=== PATIENT | male | born 1965 | race Caucasian/White ===

== ENCOUNTER 2016-07-09 09:29 | Day surgery (SDC) | payer BC ==
[~2016-07-09 09:29] MED LIST: ALDACTONE25 M1 PO; ASPIRIN EC81 MG PO; ATORVASTATIN CA20 MG PO; BACLOFEN10 M1 PO; BACTRIM DS TAB1 EAC2 PO; COUMADIN2.5 M1 PO; COUMADIN5 M2 PO; COUMADIN7.5 M1 PO; EFFEXOR XR150 M1 PO; ENTRESTO 24 MG1 EACH PO; FISH OIL 1,0001 CAP PO; HYDROCODON-ACE1 EA16 PO; JANUMET XR 50-1 EAC1 PO; KLONOPIN1 M1 PO; LASIX20 M1 PO; LISINOPRIL5 MG PO; NORCO 10/325 TA1 TAB PO; POTASSIUM CHLO20 ME3 PO; PRAVACHOL80 M1 PO; XIGDUO XR 5 MG1 EAC1 PO; ZEBETA5 M2 PO; ZYLOPRIM100 M1 PO
[2016-07-09 10:51] LABS: BASO % 0.1 % (0-2); EOSINOPHIL ABSOLUTE COUNT 0.3 tho/cmm (0.0-0.7); HCT-HEMATOCRIT 43.5 % (36.0-53.5); HGB-HEMOGLOBIN 13.9 gm/dl (13.5-17.0); LYMPH ABSOLUTE COUNT 1.8 tho/cmm (0.8-4.5); MCH (MEAN CORPUSCULAR HGB) 28.7 pg (28.0-32.0); MCV (MEAN CELL VOLUME) 89.9 fl (82.0-96.0); MONO % 10.3 % (0-12); MONOCYTE ABSOLUTE COUNT 0.9 tho/cmm (0.0-1.2); NEUTROPHIL ABSOLUTE COUNT 5.3 tho/cmm (1.6-8.0); NEUTROPHIL-AUTOMATED 5.3 tho/cmm (1.6-8.0); NEUTROPHILS % 63.6 % (40-80); PLATELET COUNT 261 tho/cmm (150-450); RED BLOOD COUNT 4.84 mil/cmm (4.40-5.70); RED CELL DISTRIBUTION WIDTH 14.9 % (12.4-16.4); WHITE BLOOD COUNT 8.3 tho/cmm (4.0-10.0)
[2016-07-09 10:55] LABS: INR 1.3 INR (0.9-1.1); PROTHROMBIN TIME 15.4 SECONDS (9.0-13.6)
[2016-07-09 11:02] LABS: ANION GAP 12 mmol/L (0-20); BLOOD UREA NITROGEN 21 mg/dl (6-24); CALCIUM 8.9 mg/dl (8.5-10.5); CARBON DIOXIDE-VENOUS 29 mmol/L (22-32); CHLORIDE 106 mmol/l (96-110); CREATININE 1.09 mg/dl (0.60-1.30); GLUCOSE 124 mg/dL (70-110); POTASSIUM 4.6 mmol/L (3.7-5.1); SODIUM 142 mmol/L (135-145); eGFR VALUE FOR BLACK >90 mL/Min
[2016-11-12] MEDS ORDERED: LASIX40 M1 PO (10:52)
[2016-11-12] MEDS ORDERED: KLOR-CON M2020 ME1 PO (10:52)
[2016-11-12] MEDS ORDERED: COUMADIN5 M2 PO (10:53)
[2016-11-12] MEDS ORDERED: COUMADIN7.5 M1 PO (10:54)
[2016-11-12] MEDS ORDERED: XIGDUO XR 5 MG1 EAC1 PO (10:54)
== END 2016-07-10 11:15 ==
LOC: SHSB 09:29 → BURN 13:30
PROVIDERS: Anesthesiology
PROC: 0HRMX74 Replacement of Right Foot Skin with Autologous Tissue Substitute, Partial Thickness, External Approach (ICD-10-PCS; principal; 2016-07-09)
DX: E11.621 Type 2 diabetes mellitus with foot ulcer (principal); E11.69 Type 2 diabetes mellitus with other specified complication; M86.9 Osteomyelitis, unspecified; I25.10 Atherosclerotic heart disease of native coronary artery without angina pectoris; I11.0 Hypertensive heart disease with heart failure; I50.9 Heart failure, unspecified; F32.9 Major depressive disorder, single episode, unspecified; Z79.01 Long term (current) use of anticoagulants; Z79.82 Long term (current) use of aspirin; Z79.84 Long term (current) use of oral hypoglycemic drugs; Z79.899 Other long term (current) drug therapy; Z95.0 Presence of cardiac pacemaker; Z95.1 Presence of aortocoronary bypass graft; Z98.890 Other specified postprocedural states
CPT/HCPCS: J0171; J0690; J1580; J2250; J3370; J7030

== ENCOUNTER 2016-08-09 12:38 | Inpatient (IN) | payer BC ==
[2016-08-09 13:29] LABS: BASO % 0.1 % (0-2); HCT-HEMATOCRIT 41.5 % (36.0-53.5); HGB-HEMOGLOBIN 14.3 gm/dl (13.5-17.0); IMMATURE GRANULOCYTES ABSOLUTE 0.03 tho/cmm (0-0.03); IMMATURE GRANULOCYTES PERCENT 0.3 % (0-0.3); LYMPH % 5.1 % (20-45); LYMPH ABSOLUTE COUNT 0.6 tho/cmm (0.8-4.5); MCHC MEAN CORPUSCULAR HGB CONC 34.5 % (32.0-36.0); MEAN PLATELET VOLUME 9.8 cmc (9.4-12.4); MONOCYTE ABSOLUTE COUNT 0.9 tho/cmm (0.0-1.2); NEUTROPHIL ABSOLUTE COUNT 9.5 tho/cmm (1.6-8.0); NEUTROPHIL-AUTOMATED 9.5 tho/cmm (1.6-8.0); NEUTROPHILS % 86.5 % (40-80); PLATELET COUNT 126 tho/cmm (150-450); RED BLOOD COUNT 4.77 mil/cmm (4.40-5.70); RED CELL DISTRIBUTION WIDTH 13.7 % (12.4-16.4)
[2016-08-09 13:30] LABS: INR 1.6 INR (0.9-1.1)
[2016-08-09] MEDS ORDERED: COUMADIN5 M2 PO ×2 (13:33)
[2016-08-09 13:44] LABS: ALB/GLOB RATIO 0.6 (0.8-2.0); ALKALINE PHOSPHATASE 111 U/L (33-138); ALT/SGPT 23 U/L (12-78); ANION GAP 17 mmol/L (0-20); AST/SGOT 24 U/L (10-40); BLOOD UREA NITROGEN 21 mg/dl (6-24); CALCIUM 8.5 mg/dl (8.5-10.5); CARBON DIOXIDE-VENOUS 24 mmol/L (22-32); CHLORIDE 94 mmol/l (96-110); CREATININE 1.31 mg/dl (0.60-1.30); GLUCOSE 212 mg/dL (70-110); POTASSIUM 4.4 mmol/L (3.7-5.1); SODIUM 131 mmol/L (135-145); eGFR VALUE FOR BLACK 73 mL/Min
[2016-08-09 13:57] LABS: URINE APPEARANCE HAZY; URINE BILIRUBIN NEGATIVE (NEG); URINE BLOOD LARGE (NEG); URINE COLOR YELLOW; URINE GLUCOSE (UA) LARGE (NEG); URINE KETONE NEGATIVE (NEG); URINE LEUKOCYTE ESTERASE POSITIVE (NEG); URINE NITRITE NEGATIVE (NEG); URINE PROTEIN MODERATE (NEG)
[2016-08-09 14:02] LABS: URINE BACTERIA 4+; URINE RBC 0-4 /[HPF] (0-5)
[2016-08-09 14:03] LABS: URINE MUCUS 1+
[2016-08-09 14:04] LABS: PROCALCITONIN 4.42 ng/ml (0.05-0.09)
[2016-08-10 04:38] LABS: BASO % 0.1 % (0-2); HCT-HEMATOCRIT 38.6 % (36.0-53.5); IMMATURE GRANULOCYTES ABSOLUTE 0.02 tho/cmm (0-0.03); IMMATURE GRANULOCYTES PERCENT 0.3 % (0-0.3); LYMPH % 9.9 % (20-45); LYMPH ABSOLUTE COUNT 0.7 tho/cmm (0.8-4.5); MCH (MEAN CORPUSCULAR HGB) 29.5 pg (28.0-32.0); MCHC MEAN CORPUSCULAR HGB CONC 33.7 % (32.0-36.0); MCV (MEAN CELL VOLUME) 87.5 fl (82.0-96.0); MEAN PLATELET VOLUME 10.1 cmc (9.4-12.4); MONO % 12.3 % (0-12); MONOCYTE ABSOLUTE COUNT 0.9 tho/cmm (0.0-1.2); NEUTROPHIL ABSOLUTE COUNT 5.6 tho/cmm (1.6-8.0); NEUTROPHIL-AUTOMATED 5.6 tho/cmm (1.6-8.0); NEUTROPHILS % 77.4 % (40-80); PLATELET COUNT 95 tho/cmm (150-450); RED BLOOD COUNT 4.41 mil/cmm (4.40-5.70); WHITE BLOOD COUNT 7.3 tho/cmm (4.0-10.0)
[2016-08-10 04:42] LABS: INR 1.6 INR (0.9-1.1); PROTHROMBIN TIME 18.4 SECONDS (9.0-13.6)
[2016-08-10 04:54] LABS: ANION GAP 15 mmol/L (0-20); BLOOD UREA NITROGEN 19 mg/dl (6-24); CARBON DIOXIDE-VENOUS 24 mmol/L (22-32); CHLORIDE 96 mmol/l (96-110); CREATININE 1.26 mg/dl (0.60-1.30); GLUCOSE 134 mg/dL (70-110); SODIUM 131 mmol/L (135-145); eGFR VALUE FOR BLACK 76 mL/Min
[2016-08-11 04:32] LABS: HCT-HEMATOCRIT 37.2 % (36.0-53.5); HGB-HEMOGLOBIN 12.5 gm/dl (13.5-17.0); MCH (MEAN CORPUSCULAR HGB) 28.9 pg (28.0-32.0); MCHC MEAN CORPUSCULAR HGB CONC 33.6 % (32.0-36.0); MCV (MEAN CELL VOLUME) 86.1 fl (82.0-96.0); MEAN PLATELET VOLUME 10.3 cmc (9.4-12.4); NEUTROPHIL-AUTOMATED 3.6 tho/cmm (1.6-8.0); PLATELET COUNT 103 tho/cmm (150-450); RED BLOOD COUNT 4.32 mil/cmm (4.40-5.70); RED CELL DISTRIBUTION WIDTH 13.9 % (12.4-16.4); WHITE BLOOD COUNT 6.1 tho/cmm (4.0-10.0)
[2016-08-11 04:38] LABS: PROTHROMBIN TIME 23.5 SECONDS (9.0-13.6)
[2016-08-11 04:45] LABS: ANION GAP 12 mmol/L (0-20); BLOOD UREA NITROGEN 18 mg/dl (6-24); CALCIUM 8.1 mg/dl (8.5-10.5); CARBON DIOXIDE-VENOUS 26 mmol/L (22-32); CHLORIDE 100 mmol/l (96-110); CREATININE 1.05 mg/dl (0.60-1.30); GLUCOSE 128 mg/dL (70-110); POTASSIUM 3.6 mmol/L (3.7-5.1); SODIUM 134 mmol/L (135-145); eGFR VALUE FOR BLACK >90 mL/Min
[2016-08-11 06:53] LABS: BAND % 22 % (0-20); BAND ABSOLUTE COUNT 1.3 tho/cmm (0-2.0); EOSINOPHIL % 1 % (0-7)
[2016-08-12 04:30] LABS: ANION GAP 13 mmol/L (0-20); BLOOD UREA NITROGEN 17 mg/dl (6-24); CALCIUM 7.8 mg/dl (8.5-10.5); CARBON DIOXIDE-VENOUS 27 mmol/L (22-32); CHLORIDE 104 mmol/l (96-110); CREATININE 0.94 mg/dl (0.60-1.30); GLUCOSE 138 mg/dL (70-110); POTASSIUM 3.4 mmol/L (3.7-5.1); SODIUM 141 mmol/L (135-145); eGFR VALUE FOR BLACK >90 mL/Min
[2016-08-12 04:42] LABS: PROTHROMBIN TIME 24.2 SECONDS (9.0-13.6)
[2016-08-12] MEDS ORDERED: FLOMAX0.4 M1 PO (16:32)
[2016-08-12] MEDS ORDERED: BACTRIM DS TAB1 EAC2 PO (16:33)
[2016-11-12] MEDS ORDERED: LASIX40 M1 PO (10:52)
[2016-11-12] MEDS ORDERED: KLOR-CON M2020 ME1 PO (10:52)
[2016-11-12] MEDS ORDERED: COUMADIN5 M2 PO (10:53)
[2016-11-12] MEDS ORDERED: COUMADIN7.5 M1 PO (10:54)
[2016-11-12] MEDS ORDERED: XIGDUO XR 5 MG1 EAC1 PO (10:54)
== END 2016-08-12 18:50 | DRG 872 ==
LOC: EDMED 12:38 → EMR2 15:23 → PCUA 16:53
PROVIDERS: Emergency Medicine; ADMIT Internal Medicine
PROC: 02HV33Z Insertion of Infusion Device into Superior Vena Cava, Percutaneous Approach (ICD-10-PCS; principal; 2016-08-10)
DX: A41.9 Sepsis, unspecified organism (principal); I10 Essential (primary) hypertension; N39.0 Urinary tract infection, site not specified; R65.20 Severe sepsis without septic shock; I73.9 Peripheral vascular disease, unspecified; E11.9 Type 2 diabetes mellitus without complications; E78.5 Hyperlipidemia, unspecified
CPT/HCPCS: C1751; J1250; J1815; J1940; J2543; J3370; J7030; P9612